=== PATIENT | male | born 1995 | race Two or more races ===

== ENCOUNTER 2025-05-22 10:02 | Emergency (ER) | payer MEDICAID, SELFPAY ==
[2025-05-22 10:17] VITALS: BP 110/75; PULSE 139; RESP 20; TEMP 36.8; O2SAT 100
[2025-05-22 10:19] VITALS: BMI 37.8
--- NOTE | 2025-05-22 10:19 | XR_ITS ---
EXAMINATION: CT abdomen pelvis w con ORDERING PROVIDER: MADISON Grajeda HISTORY: r/o perirectal abcess TECHNIQUE: After the uneventful administration of 60 cc intravenous Isovue-370 contrast and no oral contrast, volumetric helical CT was obtained of the abdomen and pelvis with 2D and 3D reformats. Institutional dose reduction protocols were utilized. RADIATION DOSE: DLP 744 mGy-cm COMPARISON: 11/11/2016, CT head. FINDINGS: LIVER: Diffuse decreased density. No obvious mass. BILIARY: Gallbladder is near later completely decompressed. Common bile duct is at upper limits of normal, 6 mm. PANCREAS: Normal. SPLEEN: 13 mm length, upper limits of normal. ADRENAL GLANDS: Normal. KIDNEYS: No hydronephrosis. No mass. No obstructive nephrolithiasis. Trace symmetric bilateral perinephric fat stranding. URETERS: Normal. BLADDER: Normal. COLON: Nondilated. No diverticula identified. There are inflammatory changes about the posterior aspect of the rectum with a heterogeneous 2.8 x 4.6 x 4.1 cm area extending from the posterior aspect of the rectum along the left gluteal fold. Central portion is mixed decreased density. No rim-enhancing fluid collection is seen. There is surrounding fat stranding and skin thickening. APPENDIX: Normal. SMALL BOWEL: Normal. STOMACH: Partially evaluated. VASCULATURE: Trace early vasculopathic changes. Portal vein measures 1.5 cm. PELVIS: Normal. LYMPH NODES: Normal. LUNG BASES: 3 mm calcified granuloma left lung base. BONES: Nonaggressive appearing sclerotic lesion in the left femoral head and acetabulum, likely bone islands. Posterior cervical fusion defects. Partial lumbarization of S1. ABDOMINAL WALL: Gynecomastia. IMPRESSION: 1. Mixed density 4.6 cm area with surrounding inflammation extending from the posterior aspect of the rectum along the left gluteal fold. My suspicion is that this represents a developing perianal fistula, though cellulitis with underlying phlegmon and other infectious and inflammatory conditions could have a similar appearance. Recommend correlation with physical exam. MR anal fistula protocol may be of benefit. 2. Hepatic steatosis with mildly enlarged portal vein and borderline splenomegaly. Query signs and symptoms of developing portal hypertension. Recommend correlation with liver function tests.
--- NOTE | 2025-05-22 10:20 | PD.EDRME ---
Rapid Medical Screening Exam RME Arrival date/time: 05/22/25 10:02 29-year-old male with no known medical history presents to the emergency room with a chief complaint of 10 out of 10 pain near an abscess around his anus x 4 days Chief Complaint: Skin/Abscess/Foreign Body Time Seen by Provider: 05/22/25 10:08 Vital signs: Vital Signs Temperature 98.2 F 05/22/25 10:17 Pulse Rate 139 H 05/22/25 10:17 Respiratory Rate 20 05/22/25 10:17 Blood Pressure 110/75 05/22/25 10:17 Pulse Oximetry (%) 100 05/22/25 10:17 Oxygen Delivery Method Room Air 05/22/25 10:17 Vital signs reviewed by provider: Yes Exam: There is an erythemic swollen rough abscess about 1 inch from the anus GCS of 15 Clinical Impression: Perirectal abscess/cellulitis
[2025-05-22] MEDS: HYDROcodone/APAP 5/325 TABLET 1 TAB PO (10:23)
[2025-05-22] MEDS: ONDANSETRON ODT 4 MG TABRAP PO (10:24)
[2025-05-22 10:42] LABS: Lactate (Lactic Acid) 2.5 mMol/L (0.4-2.0)
[2025-05-22 10:44] LABS: Basophils # (Auto) 0.0 Thou/mm3 (0.0-0.2); Basophils % (Auto) 0 % (0-2.5); Eosinophils # (Auto) 0.1 Thou/mm3 (0.0-0.5); Eosinophils % (Auto) 1 % (0-10); Hematocrit 43.5 % (41.0-53.0); Hemoglobin 15.3 g/dL (13.5-16.0); Immature Granulocytes Auto 0.05 Thou/mm3 (0.00-0.00); Lymphocytes # (Auto) 1.7 Thou/mm3 (1.0-4.8); Lymphocytes % (Auto) 17 % (10-50); Mean Corpuscular HGB Conc 35.2 g/dl (31.0-37.0); Mean Corpuscular Hemoglobin 30.0 pg (25.0-35.0); Mean Corpuscular Volume 85 fL (80-100); Monocytes # (Auto) 0.8 Thou/mm3 (0.0-0.8); Monocytes % (Auto) 8 % (0-12); Neutrophils # (Auto) 7.5 Thou/mm3 (1.8-7.7); Neutrophils % (Auto) 74 % (37-80); Nucleated Red Blood Cell # 0.00 Thou/mm3 (0.00-0.00); Nucleated Red Blood Cell % 0 /100 WBC (0); Platelet Count 216 Thou/mm3 (140-440); RDW Standard Deviation 35.8 fL (35.1-43.9); Red Blood Count 5.10 Miln/mm3 (4.50-5.90); White Blood Count 10.1 Thou/mm3 (3.8-10.6)
--- NOTE | 2025-05-22 11:18 | PD.EDSKIN ---
ED Skin Abcess FB-RME/HPI General Chief complaint: Skin/Abscess/Foreign Body Stated complaint: ABSCESS TO LEFT INNER BUTTCHEEK Time Seen by Provider: 05/22/25 10:08 Arrival date/time: 05/22/25 10:02 Limitations: no limitations RME / HPI RME / HPI narrative: 05/22/25 10:02 29-year-old male with no known medical history presents to the emergency room with a chief complaint of 10 out of 10 pain near an abscess around his anus x [address] EUGENE ROY ED EVALUATION 29 year old male with history of diabetes presents to the ED for evaluation of an area of swelling with pain located to the left buttock that extends to his anus beginning 4 days ago. Accompanied by subjective fevers. No chills. No nausea or vomiting. Denies any trauma or injury to the area. Exam: There is an erythemic swollen rough abscess about 1 inch from the anus GCS of 15 Impression: Perirectal abscess/cellulitis Related Data Home Medications ?Medication ?Instructions ?Recorded ?Confirmed clotrimazole-betamethasone 1 1 applic topical BID 12/12/20 12/12/20 %-0.05 % topical cream Previous Rx's ?Medication ?Instructions ?Recorded sulfamethoxazole 800 1 tab PO Q12H #20 tabs 05/22/25 mg-trimethoprim 160 mg tablet (Bactrim DS) Allergies Allergy/AdvReac Type Severity Reaction Status Date / Time No Known Allergies Allergy Verified 05/22/25 10:05 Review of Systems Review of Systems Systems Reviewed: All systems reviewed, normal except as documented Past Medical History Past Medical History ENDOCRINE: Positive Diabetes Mellitus Type 2 Social History SMOKING STATUS: Never smoker ED Exam General Limitations: Present no limitations General appearance: Present alert and in no apparent distress Head Head exam: Present atraumatic, normocephalic and normal inspection Eye Eye exam: Present normal appearance, PERRL and EOMI ENT ENT exam: Present normal exam, normal oropharynx and mucous membranes moist Neck Neck exam: Present normal inspection, full ROM and trachea midline Chest Chest inspection: Present normal inspection and symmetric chest wall rise Respiratory Respiratory exam: Present normal lung sounds bilaterally Cardiovascular Cardiovascular exam: Present regular rate, normal rhythm and normal heart sounds Abdominal Exam Abdominal exam: Present soft; Absent distention, tenderness or guarding Rectal Exam Rectal exam: Present other (There is an area of induration on the left buttock down to the anus skin intact) Extremities Exam Extremities exam: Present normal inspection and full ROM Back Exam Back exam: Present normal inspection and full ROM Neurological Exam Neurological exam: Present alert, oriented X3 and CN II-XII intact Psychiatric Psychiatric exam: Present normal affect and normal mood Skin Skin exam: Present warm, dry, intact and normal color Course Quality Measures none Orders Category Date Time Status CT Screening NOW Care 05/22/25 10:[address] abdomen pelvis w con Stat Exams 05/22/25 10:19 Completed Blood Culture (Lab) Stat Lab 05/22/25 10:41 Received CBC Stat Lab 05/22/25 10:37 Completed CMP [Comprehensive Metabolic Panel] Stat Lab 05/22/25 10:37 Completed Lactate (Lactic Acid) Stat Lab 05/22/25 10:37 Completed Lactic Acid, 3 HR Stat Lab 05/22/25 14:19 Completed Procalcitonin Stat Lab 05/22/25 10:37 Completed UA, C/S IF [Urinalysis, C/S if Indicated] Stat Lab 05/22/25 14:53 Received HYDROcodone*/APAP 5/325 [[place] 5/325] Med 05/22/25 10:20 Discontinued 1 tab PO X1 ONE Ondansetron Odt [Zofran Odt] Med 05/22/25 10:20 Discontinued 4 mg PO X1 ONE Piper/Tazo Inj [Zosyn Inj] 4.5 gm Med 05/22/25 11:20 Discontinued Sodium Chloride 0.9% (Pop) [NS 0.9% mini bag] 100 ml IV STAT Vancomycin Pharmacy to Dose Med 05/22/25 11:20 Active 1 each IV QDAY PRN Vancomycin/D5w 1500 mg Ivpb 300 ml Med 05/22/25 22:00 Active IV BID@1000,2200 Vancomycin/Ns 1 gm Ivpb 200 ml Med 05/22/25 11:30 Active IV X1 Vital Signs Vital signs: Vital Signs Temperature 98.2 F 05/22/25 10:17 Pulse Rate 139 H 05/22/25 10:17 Respiratory Rate 20 05/22/25 10:17 Blood Pressure 110/75 05/22/25 10:17 Pulse Oximetry (%) 100 05/22/25 10:17 Oxygen Delivery Method Room Air 05/22/25 10:17 Pulse ox is 100% on room air which is adequate. Skin / Abscess / Foreign Body MDM Narrative MDM Narrative:: Patient is a 29-year-old male no significant past medical history seen emergency for concerns for pain and swelling at his left buttock. Vital signs and exam as listed. Concern for perirectal or perianal abscess, cellulitis. Perineal skin intact, no erythema in the perineum less likely Rosie's gangrene or necrotizing fasciitis. Patient nonseptic nontoxic-appearing. Ordered CT abdomen pelvis with contrast, labs offered medication for symptom relief. Will also obtain blood cultures and provide patient with antibiotics. Labs without acute hematologic abnormality, no leukocytosis, no acute metabolic disturbance, patient's glucose is 381 lactic acid normal, procalcitonin not elevated. CT abdomen pelvis with mixed density 4.6 cm area with surrounding inflammation extending from the posterior aspect of the rectum along the left gluteal fold concerning for perianal fistula versus phlegmon. Patient skin is intact on my assessment, no evidence of fistula to the skin. Patient also has fatty liver 1518p: I spoke with surgeon Dr. Díaz. Requesting we consult with IR and see if they are able to drain. 1520p: I spoke with IR Dr. Blanco. States there is nothing drainable and it appears more like phlegmon, possibly a developing fistula. I let him know that there was no evidence of a fistula in the skin 1521p: I spoke with surgeon Dr. Díaz. He recommends if findings are a phlegmon to send the patient home with 10-day course of Bactrim BID. On reevaluation patient hemodynamically stable not distressed will discharge home close return precautions follow-up with your primary care doctor. Patient data External records reviewed:: [facility] previous records Clinical information provided by:: patient Social determinants that could affect healthcare access:: none Patient has the following chronic illnesses:: See MDM How is presenting disease/condition affected by chronic disease/condition?: no chronic disease Evaluation data The following diagnostics were reviewed and interpreted by me:: lab results and radiology exam(s) Lab and/or radiology exams considered but not ordered:: none Interpretation Summary: Ordering Physician: Campos Floyd Date of Service: 05/22/25 Procedure(s): CT abdomen pelvis w con Accession Number(s): [id number] cc: Zay Blanco MD; Campos Floyd; Marin Bianchi MD~ EXAMINATION: CT abdomen pelvis w con ORDERING PROVIDER: MADISON Grajeda HISTORY: r/o perirectal abcess TECHNIQUE: After the uneventful administration of 60 cc intravenous Isovue-370 contrast and no oral contrast, volumetric helical CT was obtained of the abdomen and pelvis with 2D and 3D reformats. Institutional dose reduction protocols were utilized. RADIATION DOSE: DLP 744 mGy-cm COMPARISON: 11/11/2016, CT head. FINDINGS: LIVER: Diffuse decreased density. No obvious mass. BILIARY: Gallbladder is near later completely decompressed. Common bile duct is at upper limits of normal, 6 mm. PANCREAS: Normal. SPLEEN: 13 mm length, upper limits of normal. ADRENAL GLANDS: Normal. KIDNEYS: No hydronephrosis. No mass. No obstructive nephrolithiasis. Trace symmetric bilateral perinephric fat stranding. URETERS: Normal. BLADDER: Normal. COLON: Nondilated. No diverticula identified. There are inflammatory changes about the posterior aspect of the rectum with a heterogeneous 2.8 x 4.6 x 4.1 cm area extending from the posterior aspect of the rectum along the left gluteal fold. Central portion is mixed decreased density. No rim-enhancing fluid collection is seen. There is surrounding fat stranding and skin thickening. APPENDIX: Normal. SMALL BOWEL: Normal. STOMACH: Partially evaluated. VASCULATURE: Trace early vasculopathic changes. Portal vein measures 1.5 cm. PELVIS: Normal. LYMPH NODES: Normal. LUNG BASES: 3 mm calcified granuloma left lung base. BONES: Nonaggressive appearing sclerotic lesion in the left femoral head and acetabulum, likely bone islands. Posterior cervical fusion defects. Partial lumbarization of S1. ABDOMINAL WALL: Gynecomastia. IMPRESSION: 1. Mixed density 4.6 cm area with surrounding inflammation extending from the posterior aspect of the rectum along the left gluteal fold. My suspicion is that this represents a developing perianal fistula, though cellulitis with underlying phlegmon and other infectious and inflammatory conditions could have a similar appearance. Recommend correlation with physical exam. MR anal fistula protocol may be of benefit. 2. Hepatic steatosis with mildly enlarged portal vein and borderline splenomegaly. Query signs and symptoms of developing portal hypertension. Recommend correlation with liver function tests. Dictated By: Zay Blanco MD Signed By: <Electronically signed by Zay Blanco MD in [place]> 05/22/25 9123 Medications / Prescriptions Medications or Prescriptions considered but not ordered:: none Medication administrations:: Medication Administration History Vancomycin/Sodium Chloride (Vancomycin/Ns 1 Gm Ivpb) 200 mls @ 100 mls/hr IV X1 GET; Protocol Stop: 05/23/25 13:29 Vancomycin HCl/Dextrose (Vancomycin/D5w 1500 Mg Ivpb) 300 mls @ 200 mls/hr IV BID@1000,2200 GET; Protocol Stop: 05/29/25 21:59 Pharmacy Consult (Vancomycin Pharmacy To Dose 1 Each Each) 1 each IV QDAY PRN PRN Reason: SSTI Stop: 06/21/25 11:19 Discontinued Medications Hydrocodone Bitart/Acetaminophen (Hydrocodone/Apap 5/325 Tablet) 1 tab PO X1 ONE Stop: 05/22/25 10:21 Last Admin: 05/22/25 10:23 Dose: 1 tab Documented By: OA Piperacillin Sod/Tazobactam (Sod 4.5 gm/ Sodium Chloride) 100 mls @ 200 mls/hr IV STAT STA; Protocol Stop: 05/22/25 11:49 Last Infusion: 05/22/25 12:03 Dose: Infused Documented By: Admin: 05/22/25 11:33 Dose: 200 mls/hr Documented By: VL Ondansetron HCl (Ondansetron Odt 4 Mg Tabrap) 4 mg PO X1 ONE; Protocol Stop: 05/22/25 10:21 Last Admin: 05/22/25 10:24 Dose: 4 mg Documented By: OA see above Consultations Consultation(s) initiated? (list below): Yes Diagnosis Skin/Abscess Differential Diagnosis: abscess of skin or subcutaneous tissue, cellulitis and other (abscess ) Most likely diagnosis given after review of the tests above:: Perirectal phlegmon Admission Indicated Admission indicated?: not indicated Explain why admission is indicated or not indicated:: With no condition needing emergent intervention, there was no indication for admission. Admission Request Was there a request for admission?: No Disposition Plan Disposition Plan: Discharge Discharge Attestation Discharge Attestation: The patient and all family members were given an opportunity to ask questions and understood the discharge instructions. Discharge instructions specifically effects, indications for sooner follow up or return to the emergency department, and the expected course of current diagnosis. Patient condition: Stable Discharge Plan Plan Patient Disposition: HOME (Self Care) Prescriptions/Referrals Prescriptions/Med Rec: New sulfamethoxazole-trimethoprim [Bactrim DS] 800-160 mg tablet 1 tab PO Q12H Qty: 20 0RF No Action clotrimazole-betamethasone 1-0.05 % cream 1 applic topical BID Referrals: Marin Bianchi MD [Primary Care Provider, Family Practice] - In 1 week Problem List Clinical Impression: Phlegmon, Pain, rectal Patient/Caregiver Discharge Instructions Education Materials: ED Wound Check (Infection) Additional Instructions: Please follow-up with your primary care doctor within the next 1 to 2 days. Today we consulted our interventional radiologist as well as the on-call surgeon. They both reviewed your case. You do not have an abscess that needs to be drained at this time. You have was called a phlegmon and this is managed with antibiotics. Please take antibiotics as prescribed. Return to the emerged permit Worsening symptoms or new symptoms of concern Print Language: Nepali Stand Alone Forms: Lin Award Info., Patient Portal Info Letter
[2025-05-22 11:27] LABS: Alanine Aminotransferase 28 U/L (10-49); Albumin, Serum 4.7 gm/dL (3.5-5.0); Albumin/Globulin Ratio 1.4 (1.2-2.2); Anion Gap 12 (7-16); Aspartate Amino Transferase 18 U/L (0-34); BUN/Creatinine Ratio 11 Ratio (12-20); Bilirubin,Total 0.6 mg/dL (0.3-1.2); Blood Urea Nitrogen 11 mg/dL (9-23); Calcium 9.9 mg/dL (8.3-10.6); Calcium (Corrected) 9.9 mg/dL (8.5-10.1); Carbon Dioxide 23.6 mMol/L (20.0-31.0); Chloride 100 mMol/L (98-107); Creatinine (Component) 1.0 mg/dL (0.6-1.3); Estimated Creatinine Clearance 114.2 mL/min (>60); Globulin 3.4 gm/dL (2.3-3.5); Glucose 381 mg/dL (74-106); Osmolality,Calculated 287 (275-295); Potassium 3.7 mMol/L (3.4-5.1); Procalcitonin < 0.04 ng/ml (0.0-0.49); Sodium 136 mMol/L (136-145); Total Protein 8.1 gm/dL (5.7-8.2); eGFR > 60 See Note
[2025-05-22 11:29] VITALS: BP 140/82; PULSE 109; RESP 18; O2SAT 98
[2025-05-22] MEDS: PIPER/TAZO INJ 4.5 GM in SODIUM CHLORIDE 0.9% (POP) 100 ML IV (11:33)
[2025-05-22 11:46] LABS: Alkaline Phosphatase 108 U/L (46-116)
[2025-05-22 13:40] LABS: Reflex Lactate? Y
[2025-05-22 13:46] VITALS: BP 127/76; PULSE 100; RESP 18; O2SAT 98
[2025-05-22 14:36] LABS: Lactic Acid, 3 HR 1.4 mMol/L (0.4-2.0)
[2025-05-22 14:56] VITALS: BP 131/85; PULSE 92; RESP 19; TEMP 37; O2SAT 95
[2025-05-22 15:19] LABS: Collection Type, Urine Clean Catch; Squamous Epithelial Cell,Urine 0 /hpf (0-5)
[2025-05-22 15:39] LABS: Bilirubin,Urine Negative (Negative); Blood,Urine Negative (Negative); Clarity,Urine Clear (Clear/Hazy); Color,Urine Lt-Yellow (Lt Yel-Yel); Culture Indicated,Urine Not Indicated; Glucose, Urine 4+ (Negative); Ketones,Urine Trace (Negative); Leukocyte Esterase,Urine Negative (Negative); Nitrite,Urine Negative (Negative); PH,Urine 6.0 (5.0-7.0); Protein,Urine Negative (Neg - Trace); RBC,Urine 1 /hpf (0-3); Specific Gravity,Urine 1.044 (1.001-1.035); Urobilinogen,Urine Negative mg/dL (0.0-1.0); WBC,Urine < 1 /hpf (0-5)
[2025-05-22 15:47] VITALS: BP 117/87; PULSE 96; RESP 18; TEMP 37.1; O2SAT 96
== END 2025-05-22 15:48 | disposition home or self-care (01) ==
PROVIDERS: Nurse Practitioner Family; Emergency Provider Emergency Medicine; PCP Family Medicine
DX: L02.31 Cutaneous abscess of buttock (principal); K62.89 Other specified diseases of anus and rectum; K76.0 Fatty (change of) liver, not elsewhere classified; R16.1 Splenomegaly, not elsewhere classified
CPT/HCPCS: 36415; 74177; 80053; 81001; 83605; 84145; 85025; 87040; 96365; 99283; A4649; J2543; Q0162; Q9967; A9270